=== PATIENT | female | born 1990 | race Two or more races ===

== ENCOUNTER 2018-07-13 11:12 | Emergency (ER) | payer SELFPAY ==
[~2018-07-13] VITALS: Ht 167.6 cm; Wt 113.9 kg
[2018-07-13 11:27] VITALS: BP 132/82
== END 2018-07-13 13:02 | disposition home or self-care (01) ==
LOC: ED 11:12
DX: J20.9 Acute bronchitis, unspecified (principal)

== ENCOUNTER 2019-01-16 14:18 | Emergency (ER) | payer OTHER ==
[~2019-01-16] VITALS: Ht 167.6 cm; Wt 109.3 kg
[2019-01-16 14:26] VITALS: Ht 167.6 cm; Wt 109.3 kg
[2019-01-16 17:53] VITALS: BP 108/59
== END 2019-01-16 17:53 | disposition home or self-care (01) ==
LOC: ED 14:18
DX: S39.012A Strain of muscle, fascia and tendon of lower back, initial encounter (principal); X58.XXXA Exposure to other specified factors, initial encounter; Y93.89 Activity, other specified; Y92.89 Other specified places as the place of occurrence of the external cause; Y99.8 Other external cause status
CPT/HCPCS: J1885

== ENCOUNTER 2020-03-14 09:55 | Emergency (ER) | payer OTHER ==
[~2020-03-14] VITALS: Ht 167.6 cm; Wt 111.1 kg
[2020-03-14 10:02] VITALS: Ht 167.6 cm; Wt 111.1 kg
[2020-03-14 10:54] VITALS: BP 119/75
== END 2020-03-14 10:54 | disposition home or self-care (01) ==
LOC: ED 09:55
DX: B30.9 Viral conjunctivitis, unspecified (principal)